=== PATIENT | female | born 1995 | race Two or more races ===

== ENCOUNTER 2024-10-16 09:03 | Emergency (ER) | payer OTHER ==
[~2024-10-16] VITALS: Ht 154.9 cm; Wt 60.3 kg
[2024-10-16] MEDS ORDERED: ACETAMINOPHEN 500 MG GEL..CAP PO ONE ×2 (10:14→10:15)
[2024-10-16] MEDS ORDERED: MAG HYDROX/ALUMINUM HYD/SIMETH 30 ML BLIST.PACK PO ONE ×2 (10:14→10:15)
[2024-10-16] MEDS ORDERED: LIDOCAINE HCL VISCOUS 20MG/ML BLIST 15ML MM ONE ×2 (10:14→10:15)
[2024-10-16 10:30] LABS: BASO % 0.2 % (0.1-1.2); EOS # 0.01 (0.04-0.54); EOS % 0.1 % (0.7-7.0); LYMPH # 1.06 (1.18-3.74); LYMPH % 10.2 % (19.3-53.1); MEAN PLATELET VOLUME 10.10 fl (9.4-12.4); MONO # 0.93 (0.24-0.82); MONO % 8.9 % (4.7-12.5); NEUT # 8.35 (1.56-6.13); NEUT % 80.3 % (34.0-71.1); RED CELL DISTRIBUTION WIDTH 11.7 % (11.6-14.4)
[2024-10-16 11:07] LABS: COVID-19 AG POSITIVE (NEGATIVE)
[2024-10-16] MEDS ORDERED: GILTUSS COUGH-118 M1 PO (11:18)
[2024-10-16] MEDS ORDERED: ACETAMINOPHEN500 M1 PO (11:18)
[2024-10-16] MEDS ORDERED: PAXLOVID 300-11 EAC1 PO (11:18)
== END 2024-10-16 11:25 | disposition home or self-care (01) ==
LOC: ER 10:03
PROVIDERS: Preventive Medicine Public Health & General Preventive Medicine
DX: U07.1 COVID-19 (principal); Z88.8 Allergy status to other drugs, medicaments and biological substances